=== PATIENT | female | born 1955 | race African-American/Black ===

== ENCOUNTER 2017-11-16 15:05 | Emergency (ER) | payer OTHER, MEDICARE ==
[~2017-11-16] VITALS: Ht 157.5 cm; Wt 68.0 kg
[~2017-11-16 15:05] MED LIST: ASPI-482 PO; ATOR10TA60 PO; BUSP5TAB PO; CHOL10003 PO; DIAZ5TAB4 PO; FERR325T58 PO; GABA-587 PO; GABA600T2 PO; HYDR-2868 PO; LISI-334 PO; MELO15TA23 PO; NITR0.4T SL; OMEP40CA5 PO; OXYC15TA PO; OXYC30TA64 PO; TIZA4CAP3 PO; TRAZ-85 PO
[2017-11-16 15:45] VITALS: BP 177/90
[2017-11-16] MEDS ORDERED: IV NORMAL SALINE 1000ML BAG 1,000 ML IV ONE (16:00)
[2017-11-16] MEDS ORDERED: ONDANSETRON PF 4 MG/2 ML VIAL. IV ONE (16:00)
[2017-11-16] MEDS ORDERED: MORPHINE SULFATE 2 MG/ML VIAL. IV ONE (16:00)
[2017-11-16] MEDS ORDERED: PANTOPRAZOLE IV PUSH 40 MG VIAL. IVP ONE (16:00)
[2017-11-16 16:06] LABS: BASO # 0.1 x10^3/uL (0.0-0.2); BASO % 1 % (0-3); EOS # 0.2 x10^3/uL (0.0-0.7); EOS % 2 % (0-3); HEMATOCRIT 35.1 % (36.0-47.0); HEMOGLOBIN 11.6 g/dL (12.0-15.5); LYMPH # 3.1 x10^3/uL (1.0-4.8); LYMPH % 45 % (24-48); MEAN CORPUSCULAR HEMOGLOBIN 29 pg (25-35); MEAN CORPUSCULAR HGB CONC 33 g/dL (31-37); MEAN CORPUSCULAR VOLUME 88 fL (79-100); MONO # 0.5 x10^3/uL (0.0-1.1); MONO % 7 % (0-9); NEUT # 3.2 x10^3uL (1.8-7.7); NEUT % 46 % (31-73); PLATELET COUNT 391 x10^3/uL (140-400); RED BLOOD COUNT 4.01 x10^6/uL (3.50-5.40); RED CELL DISTRIBUTION WIDTH 16.2 % (11.5-14.5)
[2017-11-16] MEDS ORDERED: CONTRAST GIVEN. MC PRN (16:15)
[2017-11-16] MEDS ORDERED: IOHEXOL 300 MG/ML 100ML VIAL. IV ONE (16:15)
--- NOTE | 2017-11-16 16:16 | EKG ---
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
[2017-11-16 16:18] LABS: CALCIUM 10.3 mg/dL (8.5-10.1); GFR 68.2; POTASSIUM 3.8 mmol/L (3.5-5.1)
[2017-11-16 16:23] LABS: ALBUMIN 3.6 g/dL (3.4-5.0); ALBUMIN/GLOBULIN RATIO 1.1 (1.0-1.7); MAGNESIUM 2.2 mg/dL (1.8-2.4); TOTAL BILIRUBIN 0.2 mg/dL (0.2-1.0); TOTAL PROTEIN 6.8 g/dL (6.4-8.2)
--- NOTE | 2017-11-16 16:36 | RAD ---
Portable chest, 11/16/2017: HISTORY: Productive cough, congestion Comparison is made to a study from 07/23/2015. The heart is at the upper limits of normal in size. The pulmonary vascularity is normal. No pulmonary infiltrate is seen. There is no evidence of pleural fluid. IMPRESSION: No acute cardiopulmonary abnormality is detected. Electronically signed by: Angel Figueroa MD (11/16/2017 4:33 PM) [facility]
[2017-11-16] MEDS ORDERED: ASPIRIN 325 MG TABLET PO ONE (17:15)
--- NOTE | 2017-11-16 17:16 | PHYS DOC ---
Past Medical History Past Medical History: Arthritis, Arrhythmia, Fibromyalgia, Hypertension Additional Past Medical Histor: degenerative disc disease, bilateral knee problem, plantar fasciitis Past Surgical History: Cholecystectomy, Hysterectomy, Knee Replacement Additional Past Surgical Histo: bowel resection, biopsy left breast, R KNEE, HERNIA X4 Additional Information: PT REPORTS QUITTING SMOKING 3 WEEKS AGO Alcohol Use: None Drug Use: None Adult General Chief Complaint Chief Complaint: Congestion HPI HPI Patient is a 62 year old female with history of smoking,arrhythmias, hypertension, who presents today complaining of a productive cough, chest congestion, nausea, vomiting, diarrhea, 10 out of 10 left-sided chest pain radiating to her back worse when coughing, describes the pain as sharp, states pain is worse when she is coughing, symptoms began 3 weeks ago. She states she has tried taking nitroglycerin for the chest pain with no relief. She states she stopped smoking 3 weeks ago when she started getting sick. Denies any hematemesis or melena. Review of Systems Review of Systems Constitutional: Denies fever or chills [] Eyes: Denies change in visual acuity, redness, or eye pain [] HENT: Denies nasal congestion or sore throat [] Respiratory: Reports cough, denies shortness of breath [] Cardiovascular: Reports left sided chest pain GI: Reports abdominal pain nausea vomiting and diarrhea : Denies dysuria or hematuria [] Musculoskeletal: Denies back pain or joint pain [] Integument: Denies rash or skin lesions [] Neurologic: Denies headache, focal weakness or sensory changes [] All other systems were reviewed and found to be within normal limits, except as documented in this note. Current Medications Current Medications Current Medications Medications (Trade) Dose Ordered Sig/Lucina Start Time Stop Time Status Last Admin Dose Admin Aspirin (Mer Aspirin) 325 mg 1X ONCE 11/16/17 17:15 11/16/17 17:16 DC 11/16/17 17:52 325 MG Fentanyl Citrate (Fentanyl 2ml Vial) 50 mcg 1X ONCE 11/16/17 17:45 11/16/17 17:46 DC 11/16/17 17:52 50 MCG Info (CONTRAST GIVEN -- Rx MONITORING) 1 each PRN DAILY PRN 11/16/17 16:15 11/16/17 18:49 DC Iohexol (Omnipaque 300 Mg/ml) 75 ml 1X ONCE 11/16/17 16:15 11/16/17 16:16 DC Morphine Sulfate (Morphine Sulfate) 2 mg 1X ONCE 11/16/17 16:00 11/16/17 16:02 DC 11/16/17 16:18 2 MG Ondansetron HCl (Zofran) 4 mg 1X ONCE 11/16/17 16:00 11/16/17 16:02 DC 11/16/17 16:18 4 MG Pantoprazole Sodium (PROTONIX VIAL for IV PUSH) 40 mg 1X ONCE 11/16/17 16:00 11/16/17 16:02 DC 11/16/17 16:18 40 MG Sodium Chloride 1,000 ml @ 1,000 mls/hr 1X ONCE 11/16/17 16:00 11/16/17 16:59 DC 11/16/17 16:19 1,000 MLS/HR Allergies Allergies Allergies Coded Allergies Type Severity Reaction Last Updated Verified iohexol Allergy Intermediate itching 07/02/13 Yes Sulfa (Sulfonamide Antibiotics) Allergy Mild Rash 03/09/13 Yes Physical Exam Physical Exam Constitutional: Well developed, well nourished, no acute distress, non-toxic appearance. [] HENT: Normocephalic, atraumatic, bilateral external ears normal, oropharynx moist, no oral exudates, nose normal. [] Eyes: PERRLA, EOMI, conjunctiva normal, no discharge. [] Neck: Normal range of motion, no tenderness, supple, no stridor. [] Cardiovascular:Heart rate regular rhythm, no murmur [] Lungs & Thorax: Bilateral breath sounds clear to auscultation [] Abdomen: Bowel sounds normal, soft, no tenderness, no masses, no pulsatile masses. [] Skin: Warm, dry, no erythema, no rash. [] Back: No tenderness, no CVA tenderness. [] Extremities: No tenderness, no cyanosis, no clubbing, ROM intact, no edema. [] Neurologic: Alert and oriented X 3, normal motor function, normal sensory function, no focal deficits noted. [] Psychologic: Affect normal, judgement normal, mood normal. [] Current Patient Data Vital Signs Vital Signs Date Time Temp Pulse Resp B/P (MAP) Pulse Ox O2 Delivery O2 Flow Rate FiO2 11/16/17 17:52 16 98 Room Air 11/16/17 15:45 98.8 63 177/90 (119) 98.8 Lab Values Laboratory Tests Test 11/16/17 15:53 11/16/17 17:18 White Blood Count 7.0 x10^3/uL (4.0-11.0) Red Blood Count 4.01 x10^6/uL (3.50-5.40) Hemoglobin 11.6 g/dL (12.0-15.5) L Hematocrit 35.1 % (36.0-47.0) L Mean Corpuscular Volume 88 fL (79-100) Mean Corpuscular Hemoglobin 29 pg (25-35) Mean Corpuscular Hemoglobin Concent 33 g/dL (31-37) Red Cell Distribution Width 16.2 % (11.5-14.5) H Platelet Count 391 x10^3/uL (140-400) Neutrophils (%) (Auto) 46 % (31-73) Lymphocytes (%) (Auto) 45 % (24-48) Monocytes (%) (Auto) 7 % (0-9) Eosinophils (%) (Auto) 2 % (0-3) Basophils (%) (Auto) 1 % (0-3) Neutrophils # (Auto) 3.2 x10^3uL (1.8-7.7) Lymphocytes # (Auto) 3.1 x10^3/uL (1.0-4.8) Monocytes # (Auto) 0.5 x10^3/uL (0.0-1.1) Eosinophils # (Auto) 0.2 x10^3/uL (0.0-0.7) Basophils # (Auto) 0.1 x10^3/uL (0.0-0.2) Sodium Level 142 mmol/L (136-145) Potassium Level 3.8 mmol/L (3.5-5.1) Chloride Level 105 mmol/L (98-107) Carbon Dioxide Level 28 mmol/L (21-32) Anion Gap 9 (6-14) Blood Urea Nitrogen 11 mg/dL (7-20) Creatinine 1.0 mg/dL (0.6-1.0) Estimated GFR (Cockcroft-Gault) 68.2 BUN/Creatinine Ratio 11 (6-20) Glucose Level 78 mg/dL (70-99) Calcium Level 10.3 mg/dL (8.5-10.1) H Magnesium Level 2.2 mg/dL (1.8-2.4) Total Bilirubin 0.2 mg/dL (0.2-1.0) Aspartate Amino Transferase (AST) 14 U/L (15-37) L Alanine Aminotransferase (ALT) 12 U/L (14-59) L Alkaline Phosphatase 81 U/L (46-116) Troponin I Quantitative < 0.017 ng/mL (0.000-0.055) OX-Olu-N-Type Natriuretic Peptide 257 pg/mL (0-124) H Total Protein 6.8 g/dL (6.4-8.2) Albumin 3.6 g/dL (3.4-5.0) Albumin/Globulin Ratio 1.1 (1.0-1.7) Lipase 152 U/L (73-393) Urine Collection Type Unknown Urine Color Yellow Urine Clarity Clear Urine pH 7.0 Urine Specific [place] 1.010 Urine Protein Negative mg/dL (NEG-TRACE) Urine Glucose (UA) Negative mg/dL (NEG) Urine Ketones (Stick) Negative mg/dL (NEG) Urine Blood Negative (NEG) Urine Nitrite Negative (NEG) Urine Bilirubin Negative (NEG) Urine Urobilinogen Dipstick 0.2 mg/dL (0.2 mg/dL) Urine Leukocyte Esterase Negative (NEG) Urine RBC 0 /HPF (0-2) Urine WBC Occ /HPF (0-4) Urine Squamous Epithelial Cells Few /LPF Urine Bacteria Few /HPF (0-FEW) Urine Hyaline Casts Occasional /HPF Urine Mucus Slight /LPF Urine Opiates Screen Pos (NEG) Urine Methadone Screen Neg (NEG) Urine Barbiturates Neg (NEG) Urine Phencyclidine Screen Neg (NEG) Urine Amphetamine/Methamphetamine Neg (NEG) Urine Benzodiazepines Screen Neg (NEG) Urine Cocaine Screen Neg (NEG) Urine Cannabinoids Screen Neg (NEG) Urine Ethyl Alcohol Neg (NEG) Laboratory Tests 11/16/17 15:53 Laboratory Tests 11/16/17 15:53 EKG EKG 16:[address] Rg sinus rhythm HR 69 no STEMI[] Radiology/Procedures Radiology/Procedures []PROCEDURE: CT ABDOMEN PELVIS WO CONTRAST CT of the abdomen and pelvis without contrast, 11/16/2017: HISTORY: Abdominal pain with nausea and vomiting No IV contrast was administered due to the patient's history of an iodine allergy. There is mild linear atelectasis or scarring in the left base posteriorly. The gallbladder is surgically absent. The unopacified liver shows no abnormality. There is enlargement of the common hepatic duct, likely secondary to the postcholecystectomy state. A similar appearance was present on the previous study of 12/17/2008. No pancreatic abnormality is seen. The spleen is of normal size. There is a 4 cm cyst arising from the lateral aspect of the left kidney. The kidneys show no evidence of obstruction. Mild aortic calcific plaquing is present without evidence of aneurysm. No abdominal or pelvic adenopathy is seen. There are a few scattered colonic diverticula. No paracolonic inflammatory process is seen. No free air or free fluid is evident in the abdomen or pelvis. IMPRESSION: 1. Colonic diverticulosis. 2. Chronic enlargement of the common hepatic duct secondary to the postcholecystectomy state. 3. No acute abdominal or pelvic abnormality is detected. PQRS Compliance Statement: One or more of the following individualized dose reduction techniques were utilized for this examination: 1. Automated exposure control 2. Adjustment of the mA and/or kV according to patient size 3. Use of iterative reconstruction technique Electronically signed by: Angel Figueroa MD (11/16/2017 5:13 PM) [facility] DICTATED and SIGNED BY: ANGEL FIGUEROA MD DATE: 11/16/17 1706 PROCEDURE: PORTABLE CHEST 1V Portable chest, 11/16/2017: HISTORY: Productive cough, congestion Comparison is made to a study from 07/23/2015. The heart is at the upper limits of normal in size. The pulmonary vascularity is normal. No pulmonary infiltrate is seen. There is no evidence of pleural fluid. IMPRESSION: No acute cardiopulmonary abnormality is detected. Electronically signed by: Angel Figueroa MD (11/16/2017 4:33 PM) [facility] DICTATED and SIGNED BY: ANGEL FIGUEROA MD DATE: 11/16/17 1630 Course & Med Decision Making Course & Med Decision Making Pertinent Labs and Imaging studies reviewed. (See chart for details) This is a 62-year-old female patient presenting to the ED today with multiple complaints including productive cough, chest congestion, abdominal pain, nausea , vomiting, diarrhea, chest pain, symptoms for 3 weeks. Patient's workup is negative for any acute findings including CT of the abdomen and pelvic, chest xray. Patient will be admitted for chest pain rule out. Heart score 3 17:32 I talked to patient and family member about admission she completely refused, she states she has an appointment with the pain clinic doctor tomorrow and she cannot miss this appointment. Patient is alert and oriented 4, able to make her own decisions. Give her the risk of leaving AMA including and disability. Patient signed out AMA. Staff Physician Addendum: I was working in the ER during the course of this patient's visit. I was available for consultation as needed, but I was not directly involved in the care of this patient. Dragon Disclaimer Dragon Disclaimer This electronic medical record was generated, in whole or in part, using a voice recognition dictation system. Departure Departure Impression: Primary Impression: Chest pain Additional Impressions: Acute bronchitis Abdominal pain Nausea and vomiting Disposition: AGAINST MEDICAL ADVICE Condition: STABLE Referrals: WENDY BUTLER MD (PCP) Problem Qualifiers Primary Impression: Chest pain Chest pain type: unspecified Qualified Codes: R07.9 - Chest pain, unspecified Additional Impressions: Acute bronchitis Bronchitis organism: unspecified organism Qualified Codes: J20.9 - Acute bronchitis, unspecified Abdominal pain Abdominal location: generalized Qualified Codes: R10.84 - Generalized abdominal pain Nausea and vomiting Vomiting type: unspecified Vomiting Intractability: non-intractable Qualified Codes: R11.2 - Nausea with vomiting, unspecified CONSUELO BATISTA APRN Nov 16, 2017 17:16 LETY GARVIN MD Nov 23, 2017 06:08
[2017-11-16 17:29] LABS: BILIRUBIN,URINE NEGATIVE (NEG); CLARITY,URINE CLEAR; COLOR,URINE YELLOW; NITRITE,URINE NEGATIVE (NEG); PROTEIN,URINE NEGATIVE (NEG-TRACE); UROBILINOGEN,URINE 0.2 mg/dL (0.2 mg/dL)
[2017-11-16 17:34] LABS: BACTERIA,URINE FEW /HPF (0-FEW); BARBITURATES NEG (NEG); BENZODIAZEPINES NEG (NEG); CANNABINOIDS NEG (NEG); COCAINE NEG (NEG); METHADONE NEG (NEG); OPIATES POS (NEG); PHENCYCLIDINE NEG (NEG); RBC,URINE 0 /HPF (0-2); SQUAMOUS EPITHELIAL CELL,UR FEW /LPF; WBC,URINE OCC /HPF (0-4)
[2017-11-16 17:35] LABS: AMPHETAMINE/METHAMPHETAMINE NEG (NEG); HYALINE CASTS, URINE OCCASIONAL /HPF
[2017-11-16] MEDS ORDERED: fentaNYL PF VIAL 100 MCG/2 ML VIAL IV ONE (17:45)
== END 2017-11-16 16:10 | disposition left against medical advice (07) ==
LOC: ER 15:05
DX: J20.9 Acute bronchitis, unspecified (principal); R11.2 Nausea with vomiting, unspecified; R07.89 Other chest pain; R10.84 Generalized abdominal pain; R19.7 Diarrhea, unspecified; I10 Essential (primary) hypertension; Z90.49 Acquired absence of other specified parts of digestive tract; Z90.710 Acquired absence of both cervix and uterus; Z87.891 Personal history of nicotine dependence; Z88.2 Allergy status to sulfonamides; Z91.041 Radiographic dye allergy status
CPT/HCPCS: 36415; 71045; 74176; 80053; 80307; 81001; 83690; 83735; 83880; 84484; 85025; 93005; 96374; 96375; 99285; C9113; J2270; J2405; J3010; J7030; 96361; G0479